=== PATIENT | male | born 1960 | race Caucasian/White ===

== ENCOUNTER 2025-08-16 11:21 | Emergency (ER) | payer OTHER ==
[~2025-08-16] VITALS: Ht 182.9 cm; Wt 98.6 kg
[2025-08-16] MEDS: ASPIRIN 81 MG CHEWABLE TABLET PO ONE (12:36)
[2025-08-16] MEDS: NITROGLYCERIN 0.4 MG SUBL TABLET SL PRN (12:36)
[2025-08-16 12:41] LABS: KETONE, URINE AUTO RFX NEGATIVE (NEGATIVE); LEUKOCYTE ESTERASE UR AUTO RFX NEGATIVE (NEGATIVE); NITRITE, URINE AUTO RFX NEGATIVE (NEGATIVE); RBC, URINE AUTO RFX 0 /HPF (0-3); SQUAM EPITHELIAL CELL UR AURFX 0 /HPF (0-6); WBC, URINE AUTO RFX 0 /HPF (0-3)
[2025-08-16 12:45] VITALS: BP 135/71
[2025-08-16 12:48] LABS: BASO # 0.1 10^3/uL (0.0-0.2); BASO % 0.4 % (0.0-1.0); EOS # 0.2 10^3/uL (0.0-0.5); EOS % 1.6 % (0.0-3.0); LYMPH # 1.9 10^3/uL (1.5-5.0); LYMPH % 16.8 % (24.0-44.0); MONO # 1.1 10^3/uL (0.0-0.8); MONO % 9.4 % (2.0-8.0); NEUTROPHILS # 8.2 10^3/uL (1.5-8.5); NEUTROPHILS % 71.4 % (36.0-66.0); PLATELET COUNT, AUTOMATED 231 10^3/uL (150-450)
[2025-08-16 13:04] LABS: INR 0.92
[2025-08-16 13:15] LABS: CK-MB VALUE MASS 2.1 NG/ML (<3.6)
[2025-08-16 13:16] LABS: CPK CREATINE PHOSPHOKINASE 156.0 U/L (46-171); MB/CK RELATIVE INDEX 1.34 (< OR =4)
[2025-08-16 13:17] LABS: ALT/SGPT 25.0 U/L (7.0-40); AST/SGOT 18.0 U/L (<34); CALCIUM LEVEL 9.2 MG/DL (8.3-10.6); CARBON DIOXIDE LEVEL 29.0 MMOL/L (20-31); CHLORIDE LEVEL 103.0 MMOL/L (98-107); CREATININE FOR GFR 1.1 MG/DL (0.70-1.30); GLOMERULAR FILTRATION RATE 75.4 (>49); POTASSIUM SERUM 4.3 MMOL/L (3.5-5.1); SODIUM LEVEL 137.0 MMOL/L (136-145)
[2025-08-16] MEDS ORDERED: ISOVUE-370 76% 100 ML VIAL As Ordered ONE (13:58)
[2025-08-16 14:07] LABS: CK-MB VALUE MASS 1.7 NG/ML (<3.6)
[2025-08-16 14:09] LABS: CPK CREATINE PHOSPHOKINASE 132.0 U/L (46-171); MB/CK RELATIVE INDEX 1.28 (< OR =4)
[2025-08-16 14:58] VITALS: O2SAT 95
[2025-08-16 15:00] VITALS: BP 130/74
[2025-08-16 15:13] VITALS: TEMP 98
== END 2025-08-16 15:14 | disposition home or self-care (01) ==
LOC: M ED 13:57
DX: K44.9 Diaphragmatic hernia without obstruction or gangrene (principal); E78.5 Hyperlipidemia, unspecified; J98.11 Atelectasis; N40.0 Benign prostatic hyperplasia without lower urinary tract symptoms
CPT/HCPCS: 71275; 74177; 80048; 80076; 81001; 82550; 82553; 83690; 84484; 85025; 85610; 85730; 93005; 93041; 94760; 99285; Q9967

== ENCOUNTER → 2025-10-10 | Outpatient (CLI) | payer OTHER | LOC: M CARPUL 14:20 | PROVIDERS: ATTEND Internal Medicine Cardiovascular Disease | DX: R94.31 Abnormal electrocardiogram [ECG] [EKG] (principal) ==